=== PATIENT | female | born 1995 | race Caucasian/White ===

== ENCOUNTER 2020-10-12 11:40 | Emergency (ER) | payer BC ==
[~2020-10-12] VITALS: Ht 162.6 cm; Wt 91.0 kg
--- NOTE | 2020-10-12 11:51 | NUR ---
pt prefers to be called Moe
[2020-10-12] MEDS ORDERED: SODIUM CHLORIDE FLUSH 10ML SYR IVF ONE (12:30)
[2020-10-12] MEDS ORDERED: BUPIVACAINE 0.25% INFIL ONE (12:30)
[2020-10-12] MEDS ORDERED: PROPOFOL 10 MG/ML, 20ML IVPush ONE (12:30)
[2020-10-12] MEDS ORDERED: HYDROcodone/APAP 5/325 TABLET PO ONE (12:30)
[2020-10-12] MEDS ORDERED: BUPIVACAINE 0.25% ONE (12:44)
[2020-10-12] MEDS ORDERED: PROPOFOL 10 MG/ML, 20ML ONE (12:44)
--- NOTE | 2020-10-12 12:53 | NUR ---
PERINEAL ABSCESS LANCED/PACKED BY ERP VIA PROPOFOL CONCIOUS SEDATION (PATIENT REQUIRED 200MG) ALSO REUIRED MORPHINE/ATIVAN FOR PAIN/ANXIETY VSS THROUGHOUT PROCEDURE
[2020-10-12] MEDS ORDERED: MORPHINE SULFATE 4 MG/ML, 1ML ONE (13:34)
[2020-10-12] MEDS ORDERED: LORazepam 2 MG/ML, 1ML ONE (13:41)
[2020-10-12] MEDS ORDERED: LORazepam 2 MG/ML, 1ML IV ONE (14:00)
[2020-10-12] MEDS ORDERED: MORPHINE SULFATE 4 MG/ML, 1ML IVPush PRN (14:00)
[2020-10-12 14:55] VITALS: BP 137/80
== END 2020-10-12 14:58 | disposition home or self-care (01) ==
LOC: EDSEX 11:40 → ED 13:34
DX: N76.4 Abscess of vulva (principal)
CPT/HCPCS: 56405; 87070; 87205; 96374; 96375; 99152; 99285; J2060; J2270; J2704